=== PATIENT | female | born 1980 | race Two or more races ===

== ENCOUNTER 2018-11-28 11:04 | Emergency (ER) | payer OTHER ==
[~2018-11-28] VITALS: Ht 147.3 cm; Wt 55.3 kg
[~2018-11-28 11:04] MED LIST: FIORICET 50-321 EACH PO; KETO10TA2 PO; SYNTHROID50 MCG
== END 2018-11-28 22:10 | disposition home or self-care (01) ==
LOC: ER 11:04
DX: K58.9 Irritable bowel syndrome, unspecified (principal); N83.292 Other ovarian cyst, left side